=== PATIENT | male | born 1980 | race American Indian/Alaskan Native ===

== ENCOUNTER 2017-04-12 19:18 | Emergency (ER) | payer OTHER ==
[2017-04-12 19:34] VITALS: BP 167/93; PULSE 84; RESP 18; TEMP 98.2; O2SAT 98
[2017-04-12] MEDS ORDERED: Naproxen 550 mg Tab PO STA (19:49)
[2017-04-12] MEDS ORDERED: Lidocaine 5% Patch TD STA (19:50)
--- NOTE | 2017-04-12 19:52 | C.PDOC ---
History Of Present Illness 37 yr old male presents to the ER with complaints of right sided lower back pain for the past 1 day. Patient states the pain is non radiating but made worse with movement or bending over. Patient denies trauma, abdominal pain, dysuria, bowel or bladder incontinence, weakness or numbness. Time Seen by Provider: 04/12/17 19:29 Chief Complaint (Nursing): Back Pain History Per: Patient History/Exam Limitations: no limitations Onset/Duration Of Symptoms: Days (1) Current Symptoms Are (Timing): Still Present Past Medical History Reviewed: Historical Data, Nursing Documentation, Vital Signs Vital Signs: Last Vital Signs Temp 98.2 F 04/12/17 19:30 Pulse 84 04/12/17 19:30 Resp 18 04/12/17 19:30 BP 167/93 H 04/12/17 19:30 Pulse Ox 98 04/12/17 20:25 - Medical History PMH: HTN Family History: States: No Known Family Hx - Social History Hx Alcohol Use: Yes Hx Substance Use: No - Immunization History Hx Tetanus Toxoid Vaccination: No Hx Influenza Vaccination: No Hx Pneumococcal Vaccination: No Review Of Systems Except As Marked, All Systems Reviewed And Found Negative. Gastrointestinal: Negative for: Abdominal Pain Genitourinary: Negative for: Dysuria, Incontinence Musculoskeletal: Positive for: Back Pain (right lower back pain) Neurological: Negative for: Weakness, Numbness Physical Exam - Physical Exam Appears: Non-toxic, No Acute Distress Skin: Warm, Dry, No Rash Head: Atraumatic, Normacephalic Eye(s): bilateral: Normal Inspection, PERRL, EOMI Oral Mucosa: Moist Neck: Normal ROM, No Midline Cervical Tenderness, No Paracervical Tenderness, Supple Chest: Symmetrical, No Tenderness Cardiovascular: Rhythm Regular, No Friction Rub, No Murmur Respiratory: Normal Breath Sounds, No Rales, No Rhonchi, No Stridor, No Wheezing Gastrointestinal/Abdominal: Normal Exam, Soft, No Tenderness, No Guarding, No Rebound Back: No CVA Tenderness, Other (+ mild right paralumbar tenderness) Extremity: Normal ROM, No Swelling Neurological/Psych: Oriented x3, Normal Speech, Normal Motor, Normal Sensation Gait: Steady ED Course And Treatment O2 Sat by Pulse Oximetry: 98 (RA) Pulse Ox Interpretation: Normal Medical Decision Making Medical Decision Making: PLAN: * Lidoderm TD * Naproxen PO * Flexeril PO On re-exam, the patient reports improvement of symptoms. Lungs are CTA, heart is RRR, abdomen is soft, non-tender and the patient is tolerating PO well. Ambulatory in the Ed with steady gait. Follow up with the medical doctor within 1-2 days. Return if worsened. Disposition - Disposition Referrals: [facility] [Outside] Disposition: HOME/ ROUTINE Disposition Time: 20:18 Condition: GOOD Additional Instructions: Follow up with the medical doctor within 1-2 days. Return if worsened. Prescriptions: Cyclobenzaprine [Cyclobenzaprine HCl] 10 mg PO BID #14 tab Lidocaine 5% [Lidoderm] 1 patch TOP DAILY #10 patch Naproxen [Naprosyn] 500 mg PO BID #20 tab Instructions: Low Back Pain (DC) Forms: [facility] (Niuean), Work Excuse - Clinical Impression Clinical Impression: Low back pain - PA / [employer] / Resident Statement MD/DO has reviewed & agrees with the documentation as recorded. - Scribe Statement The provider has reviewed the documentation as recorded by the Scribe Mayuri Gorman
[2017-04-12] MEDS ORDERED: Naproxen 550 mg Tab PO ONE (19:58)
[2017-04-12] MEDS ORDERED: Lidocaine 5% Patch TD ONE (19:58)
== END 2017-04-12 20:31 | disposition home or self-care (01) ==
LOC: SUPCPDRO 19:18 → C.ER 19:18
DX: M54.5 Low back pain (principal)

== ENCOUNTER 2017-07-31 21:07 | Emergency (ER) | payer OTHER ==
[2017-07-31 21:13] VITALS: O2SAT 97
[2017-07-31 21:43] LABS: BASO # 0.1 K/uL (0.0-0.2); BASO % 0.8 % (0.0-2.0); EOS # 0.2 K/uL (0.0-0.7); EOS % 2.7 % (0.0-4.0); HEMOGLOBIN 14.4 g/dL (12.0-18.0); LYMPH # 1.4 K/uL (1.0-4.3); LYMPH % 21.1 % (20.0-40.0); MEAN CELL VOLUME 86.8 fL (80.0-94.0); MEAN CORPUSCULAR HGB CONC 33.4 g/dL (33.0-37.0); MEAN PLATELET VOLUME 8.9 fL (7.2-11.7); MONO # 0.8 K/uL (0.0-0.8); NEUT # 4.4 K/uL (1.8-7.0); NEUT % 64.4 % (50.0-75.0); NRBC % 0.1 % (0.0-2.0); RBC 4.95 Mil/uL (4.40-5.90); RED CELL DISTRIBUTION WIDTH 14.7 % (11.5-14.5); WHITE BLOOD COUNT 6.8 K/uL (4.8-10.8)
[2017-07-31 21:59] LABS: ALB/GLOB RATIO 1.4 (1.0-2.1); ALBUMIN 4.4 g/dL (3.5-5.0); ALT/SGPT 39 U/L (21-72); AST/SGOT 31 U/L (17-59); BLOOD UREA NITROGEN 9 mg/dL (9-20); CALCIUM 8.9 mg/dl (8.6-10.4); GFR AFRICAN-AMERICAN > 60; GFR NON-AFRICAN AMERICAN 57
--- NOTE | 2017-07-31 22:05 | C.PDOC ---
History Of Present Illness 37 year old male presents to the ED c/o right testicular pain for the past 3 weeks. Patient states he started feeling pain after having sexual intercourse with his girlfriend. Patient denies injury, fall, trauma, hematuria, dysuria, back pain. Time Seen by Provider: 07/31/17 21:17 Chief Complaint (Nursing): Male Genitourinary History Per: Patient History/Exam Limitations: no limitations Onset/Duration Of Symptoms: Other (3 weeks) Current Symptoms Are (Timing): Still Present Quality Of Discomfort: "Pain" Associated Symptoms: denies: Nausea, Vomiting, Diarrhea Alleviating Factors: None Recent travel outside of the [place]: No Additional History Per: Patient Past Medical History Reviewed: Historical Data, Nursing Documentation, Vital Signs Vital Signs: Last Vital Signs Temp 97.8 F 08/01/17 00:00 Pulse 68 08/01/17 00:00 Resp 18 08/01/17 00:00 BP 176/114 H 08/01/17 00:00 Pulse Ox 97 08/01/17 01:11 - Medical History PMH: HTN Surgical History: No Surg Hx Family History: States: Unknown Family Hx - Social History Hx Alcohol Use: Yes Hx Substance Use: No - Immunization History Hx Tetanus Toxoid Vaccination: No Hx Influenza Vaccination: No Hx Pneumococcal Vaccination: No Review Of Systems Constitutional: Negative for: Fever, Chills, Weakness, Malaise Eyes: Negative for: Pain, Vision Change, Conjunctivae Inflammation ENT: Negative for: Ear Pain, Ear Discharge, Nose Pain Cardiovascular: Negative for: Chest Pain, Palpitations, Orthopnea, Paroxysmal Noc. Dyspnea Respiratory: Negative for: Cough, Shortness of Breath, Hemoptysis, SOB with Excertion, Pleuritic Pain Gastrointestinal: Negative for: Nausea, Vomiting, Abdominal Pain, Constipation Genitourinary: Positive for: Scrotal Pain. Negative for: Dysuria, Frequency, Incontinence, Hematuria, Penile Discharge, Rash, Penile Pain Musculoskeletal: Negative for: Neck Pain, Shoulder Pain, Back Pain Skin: Negative for: Rash Neurological: Negative for: Weakness, Numbness, Incoordination, Change in Speech Psych: Negative for: Anxiety, Depression Physical Exam - Physical Exam Appears: Non-toxic, No Acute Distress, In Acute Distress (mild painful distress ) Skin: Normal Color, Warm, Dry Head: Atraumatic, Normacephalic Eye(s): bilateral: Normal Inspection, PERRL, EOMI Ear(s): Bilateral: Normal Oral Mucosa: Moist Tongue: Normal Appearing Lips: Normal Appearing Teeth: Normal Dentition Gingiva: Normal Appearing Throat: Normal Neck: Normal, Normal ROM, Supple Chest: Symmetrical Cardiovascular: Rhythm Regular Respiratory: Normal Breath Sounds, No Rales, No Rhonchi, No Wheezing Gastrointestinal/Abdominal: Soft, No Tenderness, No Guarding, No Rebound Back: Normal Inspection Male Genital: Testicular Tenderness (right ) Extremity: Normal ROM, No Tenderness, No Swelling Extremity: Bilateral: Atraumatic, No Pedal Edema, Normal Color And Temperature, Normal ROM Neurological/Psych: Oriented x3, Normal Speech Gait: Steady ED Course And Treatment - Laboratory Results Result Diagrams: 07/31/17 21:38 07/31/17 21:38 O2 Sat by Pulse Oximetry: 97 (ON RA) Pulse Ox Interpretation: Normal - CT Scan/US Testicular US Other Rad Studies (CT/US): Read By Radiologist, Radiology Report Reviewed CT/US Interpretation: Name: DUGLAS OQUENDO Age: 37Years M Date: 07/31/2017. Requesting Physician: Baljeet Patrick : 1980. [employer] Procedure Ordered As Accession Number of Images. US SCROTUM & CONTENTS US TESTICULAR [id number]. Provided Clinical History: torsion. CONFIDENTIALITY STATEMENT. This report is intended only for the use of the referring physician, and only in accordance with law, If you received this in error, call [phone]. Page 1 of 1. EXAM: US Scrotum. CLINICAL HISTORY: 37 years old, male; Pain; Scrotum pain; Additional info: Torsion. TECHNIQUE: Real-time ultrasound of the scrotum with color Doppler and image documentation. COMPARISON: No relevant prior studies available. FINDINGS: Right testicle: Unremarkable. No mass. No torsion. 4.3 cm x 2.1 cm x 3.1 cm. Left testicle: Unremarkable. No mass. No torsion. 4.5 cm x 2.1 cm 3 cm. Epididymides: Unremarkable. RIGHT 1 cm x 1.1 cm x 1.4 cm. The LEFT 1.1 cm x 0.9 cm x 0.8 cm. Scrotum: Bilateral small hydroceles. Small epididymal head cyst 1.1 mm x 1.6 mm x 1.8 mm. IMPRESSION: 1. Small LEFT epididymal head cyst. 2. Small bilateral hydrocele. 3. Otherwise Normal scrotal ultrasound. Thank you for allowing us to participate in the care of your patient. Dictated and Authenticated by: Nolberto Jarvis MD. 08/01/2017 12:05 AM Eastern Time ([place] & [place]) Medical Decision Making Medical Decision Making: Impression: testicular pain Plan: * Labd * Chlamydia/GC * UA * Testicular US Patient while in the ED has asymptomatic HTN, states he still smokes a pack a day for the past 10 years, drinks daily and has no drugs. given 3-10 minutes of smoking cessation counseling. ua neg. covered for STI exposure. given Dr. Dean for follow up. u/s results discussed with patient adn he was given a copy. Disposition Counseled Patient/Family Regarding: Diagnosis, Need For Followup - Disposition Referrals: [facility] [Outside] [facility] [Outside] [facility] [Outside] Jaxon Valenzuela MD [Staff Provider] - Disposition: HOME/ ROUTINE Disposition Time: 00:08 Condition: GOOD Additional Instructions: return if symptoms worsen Forms: [facility] (Liberian) - Clinical Impression Clinical Impression: Urethritis, STD (sexually transmitted disease) - Scribe Statement The provider has reviewed the documentation as recorded by the Scribe Benji Anaya All medical record entries made by the Scribe were at my direction and personally dictated by me. I have reviewed the chart and agree that the record accurately reflects my personal performance of the history, physical exam, medical decision making, and the department course for this patient. I have also personally directed, reviewed, and agree with the discharge instructions and disposition.
[2017-07-31] MEDS ORDERED: cefTRIAXone (Rocephin) 250 mg Inj IM STA (23:50)
[2017-08-01 00:05] LABS: SQUAMOUS EPITHIAL < 1 /hpf (0-5); URINE BILIRUBIN NEGATIVE (NEGATIVE); URINE BLOOD NEGATIVE (NEGATIVE); URINE CLARITY Clear (Clear); URINE COLOR Yellow (YELLOW); URINE GLUCOSE (UA) NORMAL (Normal); URINE LEUKOCYTE ESTERASE NEG Leu/uL (Negative); URINE PROTEIN NEGATIVE (NEGATIVE); URINE UROBILINOGEN NORMAL mg/dL (0.2-1.0)
[2017-08-01 00:22] VITALS: BP 176/114; PULSE 68; RESP 18; TEMP 97.8
--- NOTE | 2017-08-01 12:23 | US ---
HISTORY: torsion TECHNIQUE: Realtime sonography through the scrotum with color and doppler flow. COMPARISON: None Available. FINDINGS: RIGHT TESTICLE: Measures 4.3 x 2.1 x 3.1 cm. Normal echotexture and flow. There is microlithiasis. RIGHT EPIDIDYMIS: Epididymal head measures 1.0 x 1.1 x 1.4 cm. There are 2 subcentimeter simple cyst, otherwise normal in echotexture with normal flow. LEFT TESTICLE: Measures 4.5 x 2.1 x 3.0 cm. Normal echotexture and flow. There is microlithiasis. LEFT EPIDIDYMIS: Epididymal head measures 0.8 x 0.9 x 1.1 cm. There are 2 subcentimeter simple cysts, otherwise normal in echotexture with normal flow. HYDROCELE: There are small hydroceles. VARICOCELE: None. OTHER FINDINGS: There is mild scrotal wall edema. IMPRESSION: No evidence for testicular mass or torsion. Bilateral microlithiasis. Clinical follow-up is advised and follow-up ultrasound may be performed if clinically indicated. Subcentimeter cyst in the head of both epididymis. A preliminary report was provided by [employer].
== END 2017-08-01 00:33 | disposition home or self-care (01) ==
LOC: C.ER 21:07
DX: N34.2 Other urethritis (principal); A64 Unspecified sexually transmitted disease
CPT/HCPCS: 76870; 80053; 81001; 85025; 87491; 87591; 96372; 99284; J0696

== ENCOUNTER 2017-08-03 13:22 | Emergency (ER) | payer OTHER ==
[2017-08-03 13:44] VITALS: BMI 32.8
[2017-08-03 13:47] VITALS: TEMP 98.9
[2017-08-03 14:51] VITALS: BP 141/97
--- NOTE | 2017-08-03 15:15 | C.PDOC ---
History Of Present Illness 37 y/o male presents to Ed for complaints of swollen upper lip that began this morning. Patient states he hasn't had similar symptoms since his allergy to seafood, and he has not had any seafood in 10 years. Patient also states he takes Lisinopril 10 mg daily for his blood pressure but has never had a reaction to it. Denies any other physical complaints. Time Seen by Provider: 08/03/17 14:34 Chief Complaint (Nursing): Allergic Reaction History Per: Patient History/Exam Limitations: no limitations Onset/Duration Of Symptoms: Hrs Current Symptoms Are (Timing): Still Present Recent travel outside of the [place]: No Past Medical History Reviewed: Historical Data, Nursing Documentation, Vital Signs Vital Signs: Last Vital Signs Temp 98.9 F 08/03/17 13:44 Pulse 73 08/03/17 14:45 Resp 18 08/03/17 14:45 BP 141/97 H 08/03/17 14:45 Pulse Ox 99 08/03/17 15:24 - Medical History PMH: HTN Surgical History: No Surg Hx Family History: States: Unknown Family Hx - Social History Hx Alcohol Use: Yes Hx Substance Use: No - Immunization History Hx Tetanus Toxoid Vaccination: No Hx Influenza Vaccination: No Hx Pneumococcal Vaccination: No Review Of Systems Constitutional: Negative for: Fever, Chills ENT: Positive for: Other (Swollen upper lip ) Cardiovascular: Negative for: Chest Pain Respiratory: Negative for: Shortness of Breath Gastrointestinal: Negative for: Nausea, Vomiting, Abdominal Pain, Diarrhea Skin: Negative for: Rash Neurological: Negative for: Weakness, Numbness Physical Exam - Physical Exam Appears: Non-toxic, No Acute Distress, Other (Comfortable; no change in voice) Skin: Warm, Dry, No Rash, No Ecchymosis Head: Atraumatic, Normacephalic, No Swelling Eye(s): bilateral: Normal Inspection, PERRL, EOMI Nose: Normal, No Discharge Oral Mucosa: Moist Tongue: Normal Appearing, No Swelling Lips: Swelling, No Abrasion, No Laceration, No Lesions, No Erythema, Other ( Large lips ) Throat: Normal, No Erythema, No Exudate, No Drooling, No Mass Neck: Trachea Midline, Supple Chest: Symmetrical, No Tenderness Cardiovascular: Rhythm Regular Respiratory: Normal Breath Sounds, No Decreased Breath Sounds, No Rales, No Rhonchi, No Wheezing Gastrointestinal/Abdominal: Soft, No Tenderness Extremity: Normal ROM, No Tenderness, No Pedal Edema, No Deformity, No Swelling Extremity: Bilateral: Atraumatic, Normal Color And Temperature, Normal ROM Pulses: Left Dorsalis Pedis: Normal Neurological/Psych: Oriented x3 (Awake and alert), Normal Speech (Speaking in full sentences), Other (No focal deficits ) Gait: Steady ED Course And Treatment O2 Sat by Pulse Oximetry: 99 (RA) Pulse Ox Interpretation: Normal Medical Decision Making Medical Decision Making: Administered Benadryl, Pepcid, and PredniSONE. angioedema due to Lisinopril 10 mg daily Changed to Norvasc 5 PO Disposition Doctor Will See Patient In The: Office Counseled Patient/Family Regarding: Studies Performed, Diagnosis - Disposition Disposition: HOME/ ROUTINE Disposition Time: 15:54 Condition: GOOD Forms: [facility] (Greenlandic) - Clinical Impression Clinical Impression: Lip edema - Scribe Statement The provider has reviewed the documentation as recorded by the Prashantibaries Mchugh All medical record entries made by the Prashantibaries were at my direction and personally dictated by me. I have reviewed the chart and agree that the record accurately reflects my personal performance of the history, physical exam, medical decision making, and the department course for this patient. I have also personally directed, reviewed, and agree with the discharge instructions and disposition.
[2017-08-03 15:53] VITALS: PULSE 66; RESP 17
[2017-08-03 15:54] VITALS: O2SAT 99
== END 2017-08-03 16:05 | disposition home or self-care (01) ==
LOC: C.ER 13:22
DX: R60.0 Localized edema (principal); I10 Essential (primary) hypertension

== ENCOUNTER 2017-12-03 10:23 | Emergency (ER) | payer MEDICAID ==
[2017-12-03 10:23] VITALS: BMI 32.8
[2017-12-03 10:34] VITALS: BP 164/90; PULSE 73; RESP 18; TEMP 99.7; O2SAT 97
--- NOTE | 2017-12-03 11:14 | C.PDOC ---
History Of Present Illness 37 y/o male, with PMHx of HTN, comes in for evaluation of right foot tingling and numbness developing since midnight. Patient states that he woke up with some tingling over his right foot. States he is concerned that symptoms have not resolved up until now. Otherwise denies any prior back injury/disease, fever, chills, known trauma/injury, abdominal pain, N/V, UTI symptoms, saddle anesthesia, incontinence, denies weakness, or calf pain on the right. Patient ambulated into the ED with stable gait, no apparent distress. Time Seen by Provider: 12/03/17 10:24 Chief Complaint (Nursing): Lower Extremity Problem/Injury History Per: Patient History/Exam Limitations: no limitations Onset/Duration Of Symptoms: Hrs Current Symptoms Are (Timing): Still Present Past Medical History Reviewed: Historical Data, Nursing Documentation, Vital Signs Vital Signs: Last Vital Signs Temp 99.7 F H 12/03/17 10:33 Pulse 73 12/03/17 10:33 Resp 18 12/03/17 10:33 BP 164/90 H 12/03/17 10:33 Pulse Ox 97 12/03/17 10:33 - Medical History PMH: HTN Surgical History: No Surg Hx Family History: States: Unknown Family Hx - Social History Hx Tobacco Use: Yes Hx Alcohol Use: Yes Hx Substance Use: No - Immunization History Hx Tetanus Toxoid Vaccination: No Hx Influenza Vaccination: No Hx Pneumococcal Vaccination: No Review Of Systems Except As Marked, All Systems Reviewed And Found Negative. Constitutional: Negative for: Fever, Chills Gastrointestinal: Negative for: Abdominal Pain Genitourinary: Negative for: Dysuria, Frequency, Incontinence Musculoskeletal: Positive for: Other (No calf pain). Negative for: Back Pain (or hx of back disease) Skin: Negative for: Rash, Lesions Neurological: Positive for: Numbness (and tingling to right foot), Other (No saddle anesthesia). Negative for: Weakness Physical Exam - Physical Exam Appears: Well, Non-toxic, No Acute Distress Skin: Normal Color, Warm, No Rash Head: Normacephalic Eye(s): bilateral: PERRL Throat: No Erythema, No Drooling Neck: Trachea Midline, Supple Cardiovascular: Rhythm Regular, No Murmur, No JVD Respiratory: No Decreased Breath Sounds, No Accessory Muscle Use, No Stridor, No Wheezing Gastrointestinal/Abdominal: Soft, No Tenderness, No Distention, No Guarding Back: No CVA Tenderness, No Vertebral Tenderness, No Paraspinal Tenderness Extremity: Normal ROM (w/ FROM of RLE), No Tenderness, No Calf Tenderness, Capillary Refill (less than 2 sec to right toes), No Deformity, No Swelling Pulses: Left Dorsalis Pedis: Normal, Right Dorsalis Pedis: Normal DTR: Knee (R): 2+, Knee (L): 2+ Neurological/Psych: Oriented x3, Normal Speech, Normal Motor, Normal Sensation, Normal Reflexes Gait: Steady ED Course And Treatment O2 Sat by Pulse Oximetry: 97 (RA) Pulse Ox Interpretation: Normal - Other Rad L-spine X-Ray: Read By Radiologist Interpretation: IMPRESSION: No acute displaced fracture or subluxation identified. Progress Note: X-ray taken of LS spine. On re-eval, pt is afebrile, hemodynamicaly stable. Non-toxic, ambulatory in ED with stable gait. ENT: no acute findings. neck; Supple, (-) JVD. ABd: benign. Back: (-) CVA tenderness. Neurologicaly intact. Imaging review (-) acute findings. Pt has clinical findings c/w Right foot paresthesia r/o lumbar radiculopathy . Pt advised . ref. to f/u with PMD, Neuro in 1 -2 days for re-eavl. return to Ed if any worsening or new changes. Disposition Counseled Patient/Family Regarding: Studies Performed, Diagnosis, Need For Followup, Rx Given - Disposition Referrals: [facility] at [facility] [Outside] Jaret Greenberg MD [Staff Provider] - Disposition: HOME/ ROUTINE Disposition Time: 11:15 Condition: STABLE Additional Instructions: Light duty, avoid heavy lifting, strenuous physical activity for 1 week take medication as prescribed Follow up with PMD in2 -3 days for re-evaluation. return to ED if any worsening or new changes. Prescriptions: Methocarbamol [Robaxin] 500 mg PO TID #14 tab Prednisone [Deltasone] 40 mg PO DAILY #6 tablet Instructions: Radiculopathy (DC) Forms: [facility] (Slovenian), Work Excuse - Clinical Impression Clinical Impression: Lumbar radiculopathy - PA / [employer]ION CONSULTANT / Resident Statement MD/DO has reviewed & agrees with the documentation as recorded. - Scribe Statement The provider has reviewed the documentation as recorded by the Scribe (Cynthia Fitch) All medical record entries made by the Scribe were at my direction and personally dictated by me. I have reviewed the chart and agree that the record accurately reflects my personal performance of the history, physical exam, medical decision making, and the department course for this patient. I have also personally directed, reviewed, and agree with the discharge instructions and disposition.
--- NOTE | 2017-12-03 11:28 | RAD ---
Date of service: 12/03/2017 PROCEDURE: Radiographs of the Lumbar Spine. HISTORY: pain COMPARISON: No prior. FINDINGS: BONES: Alignment appears satisfactory. No listhesis. No acute displaced fracture identified. DISC SPACES: Unremarkable. OTHER FINDINGS: None. IMPRESSION: No acute displaced fracture or subluxation identified.
== END 2017-12-03 11:59 | disposition home or self-care (01) ==
LOC: C.ER 10:23
DX: M54.16 Radiculopathy, lumbar region (principal); I10 Essential (primary) hypertension; Z72.0 Tobacco use